=== PATIENT | male | born 1960 | race Caucasian/White ===

== ENCOUNTER 2019-09-15 23:25 | Inpatient (IN) | payer OTHER ==
[~2019-09-15] VITALS: Ht 177.8 cm; Wt 154.6 kg
[2019-09-15] MEDS ORDERED: DILTIAZEM 125 MG in SODIUM CHLORIDE 0.9% 100 ML IV SCH (23:57)
[2019-09-16] MEDS ORDERED: SODIUM CHLORIDE FLUSH 10ML SYR IVF ONE
[2019-09-16] MEDS ORDERED: DILTIAZEM 5 MG/ML, 5ML IV ONE
[2019-09-16] MEDS ORDERED: DILTIAZEM 5 MG/ML, 5ML ONE (00:01)
[2019-09-16 00:23] LABS: INTERNATIONAL NORMALIZED RATIO 0.98 (0.93-1.1); PROTHROMBIN TIME 10.3 Seconds (9.6-11.5)
[2019-09-16 00:25] LABS: ALANINE AMINOTRANSFERASE 42 U/L (12-78); ANION GAP 3 mmol/L (5-15); CALCIUM 8.7 mg/dL (8.5-10.1); CHLORIDE 111 mmol/L (98-107); CREATININE 1.27 mg/dL (0.7-1.3); T4 (THYROXINE) 10.2 mcg/dL (4.5-12.1)
[2019-09-16 00:30] LABS: ALKALINE PHOSPHATASE 71 U/L (45-117); BILIRUBIN,TOTAL 0.5 mg/dL (0.2-1.0); TOTAL PROTEIN 8.2 g/dL (6.4-8.2); TROPONIN I < 0.015 ng/mL (0.000-0.045)
[2019-09-16 00:31] LABS: BASOPHILS # (AUTO) 0.05 x10^3/uL (0-0.1); BASOPHILS % (AUTO) 1 % (0-1); EOSINOPHILS # (AUTO) 0.18 x10^3/uL (0-0.4); EOSINOPHILS % (AUTO) 2 % (1-7); LYMPHOCYTES # (AUTO) 2.85 x10^3/uL (1-3.4); LYMPHOCYTES % (AUTO) 30 % (22-44); MD NO; MEAN CORPUSCULAR HEMOGLOBIN 31.5 pg (27.5-34.5); MEAN CORPUSCULAR HGB CONC 32.2 g/dL (33.2-36.2); MEAN CORPUSCULAR VOLUME 98.1 fL (81-97); MEAN PLATELET VOLUME 9.2 fL (7.4-10.4); MONOCYTES # (AUTO) 1.04 x10^3/uL (0.2-0.8); MONOCYTES % (AUTO) 11 % (2-9); NEUTROPHILS # (AUTO) 5.25 x10^3/uL (1.8-6.8); NEUTROPHILS % (AUTO) 56 % (42-75); PLATELET COUNT 245 x10^3/uL (130-400); RED BLOOD COUNT 5.15 x10^6/uL (4.38-5.82); RED CELL DISTRIBUTION WIDTH 14.1 % (9.4-14.8)
--- NOTE | 2019-09-16 01:02 | NUR ---
PT RESTING IN BED WITH PT AT HIS SIDE, PT A/O X4. PT STATED "[place] DROVE HERE [place] BECAUSE HE USED TO WORK IN THE HOSPITAL IN [place] AND HATES THAT PLACE, THE THEY DROVE HERE TO [place] FOR A DIFFERENT HOSPITAL THAN HIS LOCAL ONE".
[2019-09-16] MEDS: ENOXAPARIN 150 MG/ML SQ SCH ×2 (01:17→14:13)
[2019-09-16] MEDS ORDERED: ACETAMINOPHEN 325 MG TABLET PO PRN (02:00)
[2019-09-16] MEDS: DILTIAZEM 125 MG in SODIUM CHLORIDE 0.9% 100 ML IV SCH ×2 (02:00→15:00)
--- NOTE | 2019-09-16 02:21 | NUR ---
REPORT OF PT FROM [facility] AND ASSUMING CARE OF PT AT THIS TIME. PT IS READY FOR TRANSPORT AT THIS TIME AND TECH HAS BEEN PAGED FOR TRANSPORT OF PT FROM ER TO FLOOR.
[2019-09-16 02:44] VITALS: BP 130/86
[2019-09-16] MEDS ORDERED: ASPIRIN 81 MG TABLET EC PO SCH (06:00)
[2019-09-16 07:26] VITALS: BP 127/88
[2019-09-16 09:24] LABS: T4 (THYROXINE) 8.7 mcg/dL (4.5-12.1)
[2019-09-16 09:26] LABS: TROPONIN I < 0.015 ng/mL (0.000-0.045)
[2019-09-16 10:10] LABS: HEMOGLOBIN A1C 5.3 % (4.2-6.3)
[2019-09-16 13:46] VITALS: BP 142/93
[2019-09-16] MEDS ORDERED: MAGNESIUM HYDROXIDE 8%, 30ML UDC PO PRN (15:00)
[2019-09-16] MEDS ORDERED: DIGOXIN 0.25 MG/ML, 2ML IVPush ONE ×2 (16:30→21:00)
[2019-09-16] MEDS: METOPROLOL TARTRATE 50 MG TABLET PO SCH ×2 (16:54→21:53)
[2019-09-16 18:55] VITALS: BP 142/79
[2019-09-16] MEDS: APIXABAN 5 MG TABLET PO SCH (21:52)
[2019-09-17 01:32] VITALS: BP 156/73
[2019-09-17] MEDS: DILTIAZEM 125 MG in SODIUM CHLORIDE 0.9% 100 ML IV SCH (03:30)
[2019-09-17 05:35] LABS: BASOPHILS # (AUTO) 0.04 x10^3/uL (0-0.1); BASOPHILS % (AUTO) 1 % (0-1); EOSINOPHILS # (AUTO) 0.21 x10^3/uL (0-0.4); EOSINOPHILS % (AUTO) 3 % (1-7); LYMPHOCYTES # (AUTO) 1.71 x10^3/uL (1-3.4); LYMPHOCYTES % (AUTO) 21 % (22-44); MD NO; MEAN CORPUSCULAR HEMOGLOBIN 31.9 pg (27.5-34.5); MEAN CORPUSCULAR HGB CONC 33.5 g/dL (33.2-36.2); MEAN CORPUSCULAR VOLUME 95.3 fL (81-97); MEAN PLATELET VOLUME 8.8 fL (7.4-10.4); MONOCYTES # (AUTO) 0.69 x10^3/uL (0.2-0.8); MONOCYTES % (AUTO) 8 % (2-9); NEUTROPHILS # (AUTO) 5.55 x10^3/uL (1.8-6.8); NEUTROPHILS % (AUTO) 68 % (42-75); PLATELET COUNT 208 x10^3/uL (130-400); RED CELL DISTRIBUTION WIDTH 13.9 % (9.4-14.8)
[2019-09-17 05:44] LABS: ANION GAP 5 mmol/L (5-15); CALCIUM 8.4 mg/dL (8.5-10.1); CHLORIDE 108 mmol/L (98-107); CREATININE 1.15 mg/dL (0.7-1.3)
[2019-09-17 06:28] VITALS: BP 100/57
[2019-09-17] MEDS: METOPROLOL TARTRATE 50 MG TABLET PO SCH ×3 (06:28→21:31)
[2019-09-17 06:46] VITALS: BP 101/58
[2019-09-17] MEDS: APIXABAN 5 MG TABLET PO SCH ×2 (09:46→21:29)
[2019-09-17] MEDS: DIGOXIN 0.25 MG TABLET PO SCH (09:46)
[2019-09-17 12:51] VITALS: BP 148/73
[2019-09-17 13:07] LABS: CHOL/HDL RATIO 5.9; LDL/HDL RATIO 3.2 (0.5-3.0)
[2019-09-17 20:33] VITALS: BP 127/70
[2019-09-17 21:29] VITALS: BP 103/70
[2019-09-18 01:35] VITALS: BP 148/77
[2019-09-18 07:13] VITALS: BP 123/86
[2019-09-18 07:36] LABS: BASOPHILS # (AUTO) 0.04 x10^3/uL (0-0.1); BASOPHILS % (AUTO) 1 % (0-1); EOSINOPHILS # (AUTO) 0.23 x10^3/uL (0-0.4); EOSINOPHILS % (AUTO) 4 % (1-7); LYMPHOCYTES # (AUTO) 1.65 x10^3/uL (1-3.4); LYMPHOCYTES % (AUTO) 27 % (22-44); MD NO; MEAN CORPUSCULAR HEMOGLOBIN 31.7 pg (27.5-34.5); MEAN CORPUSCULAR HGB CONC 33.1 g/dL (33.2-36.2); MEAN CORPUSCULAR VOLUME 95.7 fL (81-97); MEAN PLATELET VOLUME 8.4 fL (7.4-10.4); MONOCYTES # (AUTO) 0.63 x10^3/uL (0.2-0.8); MONOCYTES % (AUTO) 10 % (2-9); NEUTROPHILS % (AUTO) 58 % (42-75); PLATELET COUNT 200 x10^3/uL (130-400); RED BLOOD COUNT 4.83 x10^6/uL (4.38-5.82); RED CELL DISTRIBUTION WIDTH 13.6 % (9.4-14.8)
[2019-09-18 07:41] LABS: ANION GAP 3 mmol/L (5-15); CALCIUM 8.5 mg/dL (8.5-10.1); CHLORIDE 112 mmol/L (98-107)
[2019-09-18] MEDS ORDERED: REGADENOSON 0.4 MG/5 ML SYRINGE ONE (08:08)
[2019-09-18 10:37] VITALS: BP 117/77
[2019-09-18] MEDS: DIGOXIN 0.25 MG TABLET PO SCH (10:41)
[2019-09-18] MEDS: APIXABAN 5 MG TABLET PO SCH (10:41)
[2019-09-18] MEDS: METOPROLOL TARTRATE 50 MG TABLET PO SCH (10:44)
[2019-09-18 13:10] VITALS: BP 117/74
[2019-09-18] MEDS ORDERED: APIX5TAB PO (16:16)
[2019-09-18] MEDS ORDERED: DIGO250T PO (16:16)
[2019-09-18] MEDS ORDERED: METO50TA82 PO (16:16)
== END 2019-09-18 17:48 | disposition home or self-care (01) | DRG 309 ==
LOC: ED 09-16 00:40 → EDIP 09-16 01:38 → 5SO 09-16 02:32
PROVIDERS: ADMIT Internal Medicine; ATTEND Internal Medicine
DX: I48.91 Unspecified atrial fibrillation (principal); D68.69 Other thrombophilia; Z68.42 Body mass index [BMI] 45.0-49.9, adult; E03.9 Hypothyroidism, unspecified; E66.01 Morbid (severe) obesity due to excess calories; F17.210 Nicotine dependence, cigarettes, uncomplicated; G47.33 Obstructive sleep apnea (adult) (pediatric); I10 Essential (primary) hypertension; R09.02 Hypoxemia; E78.5 Hyperlipidemia, unspecified; Z79.01 Long term (current) use of anticoagulants; Z90.49 Acquired absence of other specified parts of digestive tract
CPT/HCPCS: 36415; 71045; 78452; 80048; 80053; 80061; 83036; 83735; 83880; 84436; 84443; 84484; 85025; 85379; 85610; 85730; 93005; 93017; 93306; G0378; J1650; J2785; A9502; J1160